=== PATIENT | female | born 1940 | race Caucasian/White ===

== ENCOUNTER 2018-06-05 12:31 | Emergency (ER) | payer OTHER ==
[~2018-06-05] VITALS: Ht 157.5 cm; Wt 67.3 kg
[~2018-06-05 12:31] MED LIST: [UNRECOGNIZED DRUG - REMARK] PO
[2018-06-05 12:55] VITALS: BP 214/97
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
--- NOTE | 2018-06-05 13:19 | NUR ---
Patient being evaluated by physician at bedside.
--- NOTE | 2018-06-05 14:20 | NUR ---
REPORT TO [facility] CONTR[facility] AND FAXED THE REPORT FORM.
--- NOTE | 2018-06-05 14:45 | NUR ---
WOUND TREATMENT DONE
[2018-06-05 14:50] VITALS: BP 175/88
== END 2018-06-05 14:50 | disposition home or self-care (01) ==
LOC: MED 12:31
DX: S61.451A Open bite of right hand, initial encounter (principal); I10 Essential (primary) hypertension; Z79.899 Other long term (current) drug therapy; W54.0XXA Bitten by dog, initial encounter; Y93.89 Activity, other specified; Y92.89 Other specified places as the place of occurrence of the external cause; Y99.8 Other external cause status
CPT/HCPCS: 73130; 90471; 90715; 99283